=== PATIENT | male | born 1980 | race Caucasian/White ===

== ENCOUNTER 2016-10-11 06:36 | Emergency (ER) | payer BC ==
--- NOTE | ~2016-10-11 | EKG ---
PATIENT: JOSE GUAMAN UNIT #: [id number] Ventricular Rate: 89 BPM Atrial Rate: 89 BPM P-R Interval: 160 ms QRS Duration: 108 ms Q-T Interval: 374 ms QTC Calculation(Bezet): 455 ms P [place]: 57 degrees Calculated R [place]: 13 degrees Calculated T [place]: 26 degrees Diagnosis Line: Normal sinus rhythm Diagnosis Line: Normal ECG Diagnosis Line: No previous ECGs available Diagnosis Line: Confirmed by JOSIAS MEJIA MD ([id number]) on Diagnosis Line: 10/12/2016 1:27:19 PM INTERPRETING MD: JACKIE HERNANDEZ
--- NOTE | ~2016-10-11 | CR72 ---
[facility] [[email or web address]]. [facility] A Service [facility] RADIOLOGY TEXT RESULTS PATIENT: JOSE GUAMAN LOCATION: SED : [birth year] UNIT #: [id number] AGE: [address]: Sandra Beverly MD SEX: M ORDER DR: [id number] [place] [id number] E MR#: [id number] Acc #: [id number] NAME: JOSE GUAMAN : 1980 SEX: M STUDY DATE/TIME: 10/11/2016 7:12 UNIT: SED ROOM: STUDY DESCRIPTION: CR Chest Single View Portable Attending Physician: Sandra Beverly M.D. Ordering Physician: Sandra Beverly M.D. Primary Care Physician: Primary Care Physician No MEDICAL IMAGING REPORT This report is preliminary unless electronic signature is present. EXAM Frontal chest, 10/11/2016 INDICATION 36-year-old male with weakness. Passed out today about 6 a.m. Syncopal episode. Hypertension. TECHNIQUE Frontal chest COMPARISON 11/02/2007 FINDINGS Exam degraded by motion, body habitus and exposure factors. Cardiac silhouette within normal limits. Vascularity unremarkable. Lung volumes are low with bronchovascular crowding. No effusion, pneumothorax or dense consolidation. IMPRESSION Low volume image, otherwise negative frontal chest. Dictated by... Michel Boss M.D. THIS IS AN ELECTRONICALLY VERIFIED REPORT Michel Boss M.D. at 10/11/2016 4:29 PM Nataly TD: 10/11/2016 11:15 JOB #: [id number] [facility] [email or web address]]. [facility] A [facility] RADIOLOGY TEXT RESULTS PATIENT: JOSE GUAMAN LOCATION: SED : 82 UNIT #: [id number] AGE: [address]: Sandra Beverly MD SEX: M ORDER DR: MEDICAL IMAGING REPORT Page 1 of 1
--- NOTE | ~2016-10-11 | US85 ---
[facility] A Service [facility] RADIOLOGY TEXT RESULTS PATIENT: JOSE GUAMAN LOCATION: SED : 82 UNIT #: [id number] AGE: [address]: Sandra Beverly MD SEX: M ORDER DR: [id number] [place] [id number] E MR#: [id number] Acc #: [id number] NAME: JOSE GUAMAN : 1980 SEX: M STUDY DATE/TIME: 10/11/2016 8:39 UNIT: SED ROOM: STUDY DESCRIPTION: [facility] Attending Physician: Sandra eBverly M.D. Ordering Physician: Sandra Beverly M.D. Primary Care Physician: No Primary Care Physician MEDICAL IMAGING REPORT This report is preliminary unless electronic signature is present. EXAM Right lower extremity Doppler venous ultrasound. DATE 10/11/2016 HISTORY Right lower extremity cramping for 1 day. COMPARISON None. TECHNIQUE Venous ultrasound examination of the right lower extremity was performed using grayscale, spectral Doppler and color flow Doppler imaging. FINDINGS The examination is negative. There is no evidence of right lower extremity deep venous thrombus from the groin to the lower calf. Visualized greater saphenous vein is also patent. IMPRESSION Negative examination. No evidence of right lower extremity deep venous thrombosis. Dictated by... Sania Allison M.D. THIS IS AN ELECTRONICALLY VERIFIED REPORT Sania Allison M.D. at 10/12/2016 7:08 AM [facility]/josemanuel [facility] A Service [facility] RADIOLOGY TEXT RESULTS PATIENT: JOSE GUAMAN LOCATION: SED : 82 UNIT #: [id number] AGE: [address]: Sandra Beverly MD SEX: M ORDER DR: TD: 10/11/2016 12:15 JOB #: [id number] MEDICAL IMAGING REPORT Page 1 of 1
[2016-10-11] MEDS ORDERED: LOSARTAN-HCTZ1 EACH PO (06:44)
[2016-10-11 07:15] LABS: BASOPHIL# 0.1 X10e3 (0-0.3); BASOPHIL% 1.1 % (0-2.5); EOSINOPHIL# 0.2 X10e3 (0-0.7); EOSINOPHIL% 2.6 % (0.0-7.0); HEMATOCRIT 46.2 % (38.0-50.0); HEMOGLOBIN 15.7 gm/dL (13.0-16.0); LYMPHOCYTE# 2.7 X10e3 (1.0-3.5); LYMPHOCYTE% 33.9 % (17.0-45.0); MEAN CORPUSCULAR HEMOGLOBIN 29.9 PG (28-34); MEAN PLATELET VOLUME 10.8 FL (6.5-11.5); MONOCYTE# 0.6 X10e3 (0-1.0); MONOCYTE% 7.2 % (3.0-12.0); NEUTROPHIL# 4.4 X10e3 (1.5-7.1); NEUTROPHIL% 55.2 % (40-75); PLATELET COUNT 186 X10e3 (140-420); RED BLOOD COUNT 5.26 X10e (3.90-5.60); RED CELL DISTRIBUTION WIDTH 13.2 % (11.0-15.5); WHITE BLOOD COUNT 8.1 X10e3 (4.0-10.5)
[2016-10-11 07:35] LABS: BUN/CREATININE RATIO 18.33; CALCIUM SERUM 8.9 mg/dL (8.4-10.2); CREATININE SERUM 1.2 mg/dL (0.6-1.4); GLOM FILT RATE Estimated 78.4 mL/min (>60)
[2016-10-11 07:42] LABS: DIFF IND NO
[2016-10-11 07:59] LABS: URINE SOURCE CLEAN CATCH
[2016-10-11 08:02] LABS: POC - CKMB 1.5 ng/mL (0.0-7.9); POC - TROPONIN <0.05 ng/mL (<=0.05)
[2016-10-11 08:04] LABS: URINE APPEARANCE CLEAR; URINE BILIRUBIN NEG (NEG); URINE BLOOD NEG (NEG); URINE COLOR YELLOW; URINE GLUCOSE 300 MG/DL (NORM); URINE KETONE TRACE (NEG); URINE LEUKOCYTE ESTERASE NEG (NEG); URINE NITRATE NEG (NEG); URINE PH 5.5 (5-8); URINE PROTEIN NEG (NEG); URINE SPECIFIC GRAVITY <=1.005 (1.003-1.035); URINE UROBILINOGEN 0.2 MG/DL (NORM)
[2016-10-11 08:06] LABS: MICRO INDICATED? NO
[2016-10-11 08:14] LABS: ALBUMIN SERUM 4.2 g/dL (3.5-5.0); ALKALINE PHOSPHATASE 101 U/L (32-92); ALT (SGPT) 69 U/L (10-40); AST (SGOT) 33 U/L (10-42); BILIRUBIN,TOTAL 0.3 mg/dL (0.2-2.0); PROTEIN TOTAL SERUM 7.2 g/dL (6.0-8.3)
[2016-10-11 08:15] LABS: BILIRUBIN, DIRECT <0.1 mg/dL (0.0-0.2); BILIRUBIN,INDIRECT 0.2 mg/dL (0.0-0.9)
== END 2016-10-11 12:35 | disposition home or self-care (01) ==
LOC: SED 06:36
PROVIDERS: Emergency Medicine
DX: R55 Syncope and collapse (principal); E11.9 Type 2 diabetes mellitus without complications; I10 Essential (primary) hypertension
CPT/HCPCS: 36415; 71010; 80048; 80076; 81003; 82010; 82553; 82947; 83036; 84484; 85025; 93005; 93971; 96360; 96361; 96374; 99284

== ENCOUNTER 2016-10-11 23:05 | Emergency (ER) | payer BC ==
[~2016-10-11 23:05] MED LIST: LOSARTAN-HCTZ1 EACH PO
[2016-10-12 00:46] LABS: BASOPHIL# 0.1 X10e3 (0-0.3); BASOPHIL% 1.1 % (0-2.5); EOSINOPHIL# 0.2 X10e3 (0-0.7); EOSINOPHIL% 2.1 % (0.0-7.0); HEMOGLOBIN 15.1 gm/dL (13.0-16.0); LYMPHOCYTE# 4.1 X10e3 (1.0-3.5); LYMPHOCYTE% 41.5 % (17.0-45.0); MEAN CELL VOLUME 86.2 FL (83-96); MEAN CORPUSCULAR HEMOGLOBIN 29.5 PG (28-34); MEAN CORPUSCULAR HGB CONC 34.2 g/dL (30-36); MEAN PLATELET VOLUME 10.2 FL (6.5-11.5); MONOCYTE# 0.6 X10e3 (0-1.0); MONOCYTE% 6.5 % (3.0-12.0); NEUTROPHIL# 4.8 X10e3 (1.5-7.1); NEUTROPHIL% 48.8 % (40-75); PLATELET COUNT 181 X10e3 (140-420); RED CELL DISTRIBUTION WIDTH 13.1 % (11.0-15.5); WHITE BLOOD COUNT 9.9 X10e3 (4.0-10.5)
[2016-10-12 00:50] LABS: DIFF IND NO
[2016-10-12 01:12] LABS: ALBUMIN SERUM 4.1 g/dL (3.5-5.0); ALKALINE PHOSPHATASE 86 U/L (32-92); ALT (SGPT) 68 U/L (10-40); AST (SGOT) 35 U/L (10-42); BILIRUBIN,TOTAL 0.4 mg/dL (0.2-2.0); BLOOD UREA NITROGEN 19 mg/dL (9-23); CALCIUM SERUM 8.8 mg/dL (8.4-10.2); CARBON DIOXIDE 22 mmol/L (22-31); CHLORIDE 99 mmol/L (100-111); GLOM FILT RATE Estimated 97.8 mL/min (>60); GLUCOSE FASTING 331 mg/dL (70-110); POTASSIUM 3.7 mmol/L (3.5-5.1); PROTEIN TOTAL SERUM 6.8 g/dL (6.0-8.3); SODIUM 130 mmol/L (135-145)
[2016-10-12 01:12] LABS: URINE SOURCE CLEAN CATCH
[2016-10-12 01:14] LABS: BILIRUBIN, DIRECT <0.1 mg/dL (0.0-0.2); BILIRUBIN,INDIRECT 0.3 mg/dL (0.0-0.9)
[2016-10-12 01:22] LABS: URINE APPEARANCE CLEAR; URINE BILIRUBIN NEG (NEG); URINE BLOOD NEG (NEG); URINE COLOR YELLOW; URINE GLUCOSE >1000 MG/DL (NEG); URINE KETONE TRACE (NEG); URINE LEUKOCYTE ESTERASE NEG (NEG); URINE NITRATE NEG (NEG); URINE PROTEIN NEG (NEG); URINE SPECIFIC GRAVITY 1.024 (1.003-1.035); URINE UROBILINOGEN 0.2 MG/DL (NEG)
[2016-10-12 01:29] LABS: CULTURE INDICATED? NO
== END 2016-10-12 05:04 | disposition home or self-care (01) ==
LOC: CED 23:05
PROVIDERS: Emergency Medicine
DX: E11.65 Type 2 diabetes mellitus with hyperglycemia (principal); I10 Essential (primary) hypertension; Z79.899 Other long term (current) drug therapy
CPT/HCPCS: 36415; 80048; 80076; 81003; 82947; 85025; 96360; 96365; 99284; J1815